=== PATIENT | female | born 1995 | race Caucasian/White ===

== ENCOUNTER 2022-12-23 14:28 | Emergency (ER) | payer OTHER ==
[~2022-12-23] VITALS: Ht 162.6 cm; Wt 81.8 kg
[2022-12-23 14:53] VITALS: TEMP 99.1
[2022-12-23 17:15] LABS: BASO % 0.5 % (0.0-2.0); EOS % 0.3 % (0.0-4.0); GRAN % 61.3 % (42.2-75.2); HEMATOCRIT 41.3 % (37.0-47.0); LYMPH # 2.2 K/mm3 (1.2-3.4); LYMPH % 32.8 % (20.0-51.0); MEAN CELL VOLUME 89 fl (80.0-100.0); MEAN CORPUSCULAR HEMOGLOBIN 30 pg (27-31); MEAN CORPUSCULAR HGB CONC 34 g/dl (33.0-37.0); MEAN PLATELET VOLUME 9.8 fl (7.4-10.4); MONO # 0.3 K/mm3 (0.1-0.6); MONO % 4.9 % (1.7-9.3); PLATELET COUNT 301 K/mm3 (130-400); RED BLOOD COUNT 4.64 M/mm3 (4.10-5.30); REDCELL DISTRIBUTION WIDTH-CV 11.9 % (11.5-14.5)
[2022-12-23 17:28] LABS: BILIRUBIN,TOTAL 0.4 mg/dL (0.2-1.2); CALCIUM 9.4 mg/dL (8.4-10.2); CREATININE, serum 0.84 mg/dL (0.57-1.11); POTASSIUM 4.1 mmol/L (3.5-4.5); TOTAL PROTEIN 7.7 gm/dL (6.2-8.1)
[2022-12-23] MEDS ORDERED: ZOFRAN ODT4 MG PO (17:55)
[2022-12-23] MEDS ORDERED: NORCO 325 MG-51 TAB PO (17:55)
[2022-12-23] MEDS ORDERED: PROTONIX 40MG T40 MG PO (17:55)
[2022-12-23 18:12] VITALS: BP 117/83; PULSE 80
== END 2022-12-23 18:29 | disposition home or self-care (01) ==
LOC: COL.ER 14:28
PROVIDERS: Personal Emergency Response Attendant
DX: R10.11 Right upper quadrant pain (principal)
CPT/HCPCS: J2405; J7030